=== PATIENT | male | born 1965 | race Caucasian/White ===

== ENCOUNTER 2017-08-14 23:12 | Emergency (ER) | payer SELFPAY ==
[~2017-08-14] VITALS: Ht 180.3 cm; Wt 80.0 kg
[2017-08-14 23:21] VITALS: BP 179/98; PULSE 90; RESP 18; TEMP 98.6; O2SAT 97
--- NOTE | 2017-08-14 23:26 | PD ---
HPI Chief Complaint: Fall Time Seen by Provider: 23:18 Travel History International Travel<30 days: No Contact w/Intl Traveler<30days: No Traveled to known affect area: No History of Present Illness HPI 52-year-old male with history of alcohol dependency, presents to emergency department this evening for evaluation following a fall. Patient has been drinking heavily. He fell backwards, striking his head. He had no loss of consciousness. His witnessed this. She called [facility] ambulance. Patient did sustain a laceration to the posterior scalp. He denies any significant pain. He has no other symptoms to report. COUNTS INCLUDE 234 BEDS AT THE [facility] Past Medical History Medical History: Denies Significant Hx Tetanus Vaccination: Unknown Influenza Vaccination: No Past Surgical History Surgical History: No Previous Surgery Social History Alcohol Use: Yes (DAILY) Tobacco Use: Yes Substance Use: No Allergies-Medications (Allergen,Severity, Reaction): Coded Allergies: No Known Allergies (Unverified , 08/14/17) Reported Meds & Prescriptions Reported Meds & Active Scripts Active No Active Prescriptions or Reported Medications Review of Systems Except as stated in HPI: all other systems reviewed are Neg Physical Exam Narrative GENERAL: Well-nourished, clinically intoxicated male with strong smell of alcohol most breath and slurred speech, in no acute distress. SKIN: Focused skin assessment warm/dry. HEAD: 2-1/2 cm laceration to the right posterior scalp. Normocephalic. EYES: Pupils equal and round. No scleral icterus. No injection or drainage. EOMI ENT: No nasal bleeding or discharge. Mucous membranes pink and moist. NECK: Trachea midline. No JVD. Cervical collar remains in place CARDIOVASCULAR: Regular rate and rhythm. No murmur appreciated. RESPIRATORY: No accessory muscle use. Clear to auscultation. Breath sounds equal bilaterally. GASTROINTESTINAL: Abdomen soft, non-tender, nondistended. Hepatic and splenic margins not palpable. MUSCULOSKELETAL: No obvious deformities. No clubbing. No cyanosis. No edema. NEUROLOGICAL: Awake and alert. No obvious cranial nerve deficits. Motor grossly within normal limits. Slurred speech Data Data Last Documented VS Vital Signs Date Time Temp Pulse Resp B/P (MAP) Pulse Ox O2 Delivery O2 Flow Rate FiO2 08/14/17 23:21 98.6 90 18 179/98 (125) [address] Brain W/O Iv Contrast(Rout) (08/14/17 ) Ct Cerv Spine W/O Contrast (08/14/17 ) Tetanus/Diphtheria Tox Adult (Tetanus/Di (08/14/17 23:30) Ed Discharge Order (08/15/17 00:06) [facility] Medical Decision Making Medical Screen Exam Complete: Yes Emergency Medical Condition: Yes Medical Record Reviewed: Yes Differential Diagnosis Minor head injury versus intracranial hemorrhage versus skull fracture Narrative Course 52-year-old male presents to emergency department for evaluation following a fall. Patient is clinically intoxicated and admits to large amount of alcohol consumption this evening. CT imaging of the brain and cervical spine without acute abnormality. Laceration is cleansed and approximated without difficulty. Patient tolerates this well. His is here and he'll be discharged home with her she is a safe mode of transportation. He is counseled on care and agrees to return immediately with any acute worsening symptoms. Procedures Procedure Narrative LACERATION LOCATION: Right posterior scalp LENGTH: 2-1/2 cm NUMBER OF STITCHES/DISHA: 3 disha REPAIR: The area of the laceration was prepped with Betadine and sterilely draped. The wound was copiously irrigated and explored without evidence of foreign body, tendon injury or neurovascular injury. The wound was closed using disha. This was a single layer repair. A sterile dressing was applied. The patient was advised to keep the dressing clean and dry. Patient tolerated the procedure well. Diagnosis Primary Impression: Head injury, acute, without loss of consciousness Qualified Codes: S09.90XA - Unspecified injury of head, initial encounter Additional Impressions: Scalp laceration Qualified Codes: S01.01XA - Laceration without foreign body of scalp, initial encounter Alcohol intoxication Qualified Codes: F10.929 - Alcohol use, unspecified with intoxication, unspecified Referrals: Primary Care Physician Patient Instructions: General Instructions, Head Injury (ED) Additional Instructions: Consume alcohol in moderation Hankins are to be removed in 10 days. This can be done in the emergency department or your primary care provider's office Keep the area clean.. You may shower Tylenol or ibuprofen as directed on package as needed for pain Return immediately to the emergency department with any acute worsening symptoms Med/Other Pt SpecificInfo: No Change to Meds Scripts No Active Prescriptions or Reported Meds Disposition: 01 DISCHARGE HOME Condition: Stable Montserrat Hughes Aug 14, 2017 23:26
[2017-08-14] MEDS ORDERED: TETANUS/DIPHTHERIA TOXOID ADULT 0.5 ML VIAL IM ONE (23:30)
--- NOTE | 2017-08-14 23:53 | RADRPT ---
EXAM DATE/TIME: 08/14/2017 23:27 [facility] COMPARISON: No previous studies available for comparison. INDICATIONS : Trauma; fall. ETOH. RADIATION DOSE: 56.35 CTDIvol (mGy) MEDICAL HISTORY : None SURGICAL HISTORY : None. ENCOUNTER: Initial ACUITY: 1 day PAIN SCALE: 0/10 LOCATION: cranial TECHNIQUE: Multiple contiguous axial images were obtained of the head. Using automated exposure control and adj ustment of the mA and/or kV according to patient size, radiation dose was kept as low as reasonably a chievable to obtain optimal diagnostic quality images. DICOM format image data is available electro nically for review and comparison. FINDINGS: Noncontrast axial head CT demonstrates the ventricles to be normal in size and configuration with a n ormal sulcal pattern. No acute intracranial hemorrhage, acute cortical infarction, mass or midline sh ift is seen. There is hypodensity in the left putamen measuring 8 mm characteristic of a lacunar infa rct age uncertain. Posterior fossa structures are unremarkable. Bone windows are unremarkable. CONCLUSION: 1. No evidence of acute hemorrhage 2. Lacunar infarct left basal ganglia age uncertain Luis Morrison MD on August 14, 2017 at 23:50 Board Certified Radiologist. This report was verified electronically.
--- NOTE | 2017-08-14 23:55 | RADRPT ---
EXAM DATE/TIME: 08/14/2017 23:28 [facility] COMPARISON: No previous studies available for comparison. INDICATIONS : Trauma; fall. ETOH. RADIATION DOSE: 30.16 CTDIvol (mGy) MEDICAL HISTORY : None SURGICAL HISTORY : None. ENCOUNTER: Initial ACUITY: 1 day PAIN SCALE: 0/10 LOCATION: neck TECHNIQUE: Volumetric scanning of the cervical spine was performed. Multiplanar reconstructions in the sagittal, coronal and oblique axial planes were performed. Using automated exposure control and adjustment o f the mA and/or kV according to patient size, radiation dose was kept as low as reasonably achievable to obtain optimal diagnostic quality images. DICOM format image data is available electronically f or review and comparison. FINDINGS: Sagittal images demonstrate normal vertebral body alignment and curvature. The odontoid is intact. Th e occipital condyles and lateral masses of C1 are intact. Axial images were performed from C2-C3 to C7-T1. There is multilevel disc space narrowing and marginal osteophyte formation maximal at C5-C6. 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 C2-C3: There is uncovertebral joint hypertrophy on left side. There is no significant spinal canal stenosis. The neural foramina are clear bilaterally. C3-C4: There is uncovertebral joint hypertrophy on left side. There is mild left sided neural foraminal narr owing. There is no significant spinal canal stenosis. A central to left sided disc protrusion is pres ent impinging on the thecal sac. C4-C5: There is uncovertebral joint hypertrophy bilaterally. There is no significant spinal canal stenosis. C5-C6: There is osteophytic ridging asymmetric to the left. There is mild left sided neural foraminal narrow ing. There is uncovertebral joint hypertrophy on left side. C6-C7: No significant abnormalities identified. C7-T1: There is no evidence of disc protrusion or spinal canal stenosis. There is mild facet arthritis on th e left. CONCLUSION: 1. Moderate degenerative changes as described above. There is no evidence of acute fracture. Luis Morrison MD on August 14, 2017 at 23:52 Board Certified Radiologist. This report was verified electronically.
== END 2017-08-15 00:18 | disposition home or self-care (01) ==
LOC: NEPD 23:12
DX: S09.90XA Unspecified injury of head, initial encounter (principal); S01.01XA Laceration without foreign body of scalp, initial encounter; F10.129 Alcohol abuse with intoxication, unspecified; M50.30 Other cervical disc degeneration, unspecified cervical region; Z23 Encounter for immunization; Z72.0 Tobacco use; W18.00XA Striking against unspecified object with subsequent fall, initial encounter
CPT/HCPCS: 12001; 70450; 72125; 90471; 90714